=== PATIENT | female | born 1990 | race African-American/Black ===

== ENCOUNTER 2016-05-01 17:32 | Inpatient (IN) | payer MEDICAID, OTHER ==
[~2016-05-01] VITALS: Ht 157.5 cm; Wt 53.5 kg
[2016-05-01] MEDS ORDERED: HALOPERIDOL LACTATE 5 MG/ML VIAL IM ONE (17:45)
[2016-05-01] MEDS ORDERED: LORazepam 2 MG/ML VIAL IM ONE (17:45)
[2016-05-01] MEDS ORDERED: DiphenhydrAMINE HCL 50 MG/ML VIAL IM ONE (17:45)
[2016-05-01 18:53] LABS: BASOPHILS % (AUTO) 0.9 % (0.0-2.0); EOSINOPHILS % (AUTO) 0.5 % (1.0-6.0); HEMATOCRIT 38.8 % (36-46); HEMOGLOBIN 12.6 g/dL (12.0-16.0); LYMPHOCYTES # (AUTO) 1.7 K/uL (1.0-4.8); LYMPHOCYTES % (AUTO) 32.1 % (22.0-44.0); MEAN CORPUSCULAR HEMOGLOBIN 28.3 pg (26.0-34.0); MEAN CORPUSCULAR HGB CONC 32.5 G/dL (31.0-37.0); MEAN CORPUSCULAR VOLUME 87 fL (80-100); MONOCYTES # (AUTO) 0.4 K/uL (0.1-1.0); MONOCYTES % (AUTO) 7.1 % (2.0-9.0); NEUTROPHILS # (AUTO) 3.1 K/uL (1.8-7.7); NEUTROPHILS % (AUTO) 59.4 % (40.0-70.0); PLATELET COUNT (AUTO) 312 K/uL (150-450); RED BLOOD CELL COUNT(AUTO) 4.45 MIL/uL (4.00-5.20); RED CELL DISTRIBUTION WIDTH 13.8 % (11.5-14.5); WHITE BLOOD COUNT (AUTO) 5.3 K/uL (4.5-11.0)
[2016-05-01 19:02] LABS: ANION GAP 10 mmol/L (8-16); CARBON DIOXIDE 26 mmol/L (22-29); CHLORIDE 107 mmol/L (98-107); CREATININE 0.93 mg/dL (0.60-1.30); GLOMERULAR FILTR. RATE CALC > 60 mL/min (>60); SODIUM SERUM 143 mmol/L (136-145); UREA NITROGEN, BLOOD 16 mg/dL (7-18)
[2016-05-01 19:11] LABS: ALANINE AMINOTRANSFERASE 18 U/L (12-78); ALBUMIN 3.3 g/dL (3.4-5.0); ASPARTATE AMINOTRANSFERASE 11 U/L (15-37); BILIRUBIN,TOTAL 0.3 mg/dL (0.1-1.0)
[2016-05-01] MEDS ORDERED: POTASSIUM CHLORIDE 20 MEQ ER TABLET PO ONE (19:45)
[2016-05-01] MEDS ORDERED: NALOXONE HCL 1 MG/ML 2 ML SYG IVP ONE (21:30)
[2016-05-01] MEDS ORDERED: NALOXONE HCL 1 MG/ML 2 ML SYG IM ONE (23:15)
[2016-05-02] MEDS ORDERED: ZOLPIDEM TARTRATE 10 MG TABLET PO PRN (01:00)
[2016-05-02] MEDS ORDERED: LORazepam 2 MG TABLET PO PRN (01:00)
[2016-05-02] MEDS ORDERED: HALOPERIDOL 5 MG TABLET PO PRN (01:00)
[2016-05-02 02:31] VITALS: BP 101/78
[2016-05-02] MEDS ORDERED: INFLUENZA VIRUS VACCINE QVS 2016-17 (3YR+)/PF 60 MCG/0.5 ML SYRINGE IM ONE (03:00)
[2016-05-02] MEDS: RisperiDONE 2 MG TABLET PO SCH (13:40)
[2016-05-02 17:55] VITALS: BP 98/44
[2016-05-02 18:00] VITALS: BP 86/41
[2016-05-02 18:05] VITALS: BP 77/42
[2016-05-02 18:10] VITALS: BP 86/46
[2016-05-02] MEDS ORDERED: IBUPROFEN 400 MG TABLET PO PRN (23:00)
[2016-05-02] MEDS ORDERED: ACETAMINOPHEN 325 MG TABLET PO PRN (23:00)
[2016-05-03 00:05] VITALS: BP 100/67
[2016-05-03 06:51] VITALS: BP 112/63
[2016-05-03 10:05] VITALS: BP 100/65
[2016-05-03] MEDS: RisperiDONE 2 MG TABLET PO SCH (10:06)
[2016-05-03 16:08] VITALS: BP 110/65
[2016-05-03 16:57] VITALS: BP 112/67
[2016-05-04 06:02] VITALS: BP 100/60
[2016-05-04 08:39] VITALS: BP 99/58
[2016-05-04 08:52] LABS: BASOPHILS % (AUTO) 0.7 % (0.0-2.0); EOSINOPHILS % (AUTO) 0.8 % (1.0-6.0); HEMATOCRIT 36.6 % (36-46); HEMOGLOBIN 11.8 g/dL (12.0-16.0); LYMPHOCYTES # (AUTO) 1.4 K/uL (1.0-4.8); LYMPHOCYTES % (AUTO) 35.3 % (22.0-44.0); MEAN CORPUSCULAR HEMOGLOBIN 28.3 pg (26.0-34.0); MEAN CORPUSCULAR HGB CONC 32.3 G/dL (31.0-37.0); MEAN CORPUSCULAR VOLUME 87 fL (80-100); MONOCYTES # (AUTO) 0.3 K/uL (0.1-1.0); MONOCYTES % (AUTO) 7.1 % (2.0-9.0); NEUTROPHILS # (AUTO) 2.2 K/uL (1.8-7.7); NEUTROPHILS % (AUTO) 56.1 % (40.0-70.0); PLATELET COUNT (AUTO) 287 K/uL (150-450); RED BLOOD CELL COUNT(AUTO) 4.19 MIL/uL (4.00-5.20); RED CELL DISTRIBUTION WIDTH 13.4 % (11.5-14.5); WHITE BLOOD COUNT (AUTO) 3.9 K/uL (4.5-11.0)
[2016-05-04 09:11] LABS: HEMOGLOBIN A1C 5.1 % (4.5-6.2)
[2016-05-04 09:14] VITALS: BP 100/55
[2016-05-04] MEDS: RisperiDONE 2 MG TABLET PO SCH (09:15)
[2016-05-04 09:34] LABS: ALANINE AMINOTRANSFERASE 19 U/L (12-78); ALBUMIN 3.1 g/dL (3.4-5.0); ANION GAP 12 mmol/L (8-16); ASPARTATE AMINOTRANSFERASE 14 U/L (15-37); BILIRUBIN,TOTAL 0.7 mg/dL (0.1-1.0); CALCIUM, TOTAL 8.2 mg/dL (8.8-10.5); CARBON DIOXIDE 24 mmol/L (22-29); CHLORIDE 107 mmol/L (98-107); CREATININE 0.58 mg/dL (0.60-1.30); GLOMERULAR FILTR. RATE CALC > 60 mL/min (>60); POTASSIUM 4.1 mmol/L (3.5-5.1); SODIUM SERUM 143 mmol/L (136-145); THYROID STIMULATING HORMONE 0.15 uIU/mL (0.36-3.74); TOTAL PROTEIN, SERUM 6.2 g/dL (6.4-8.2); UREA NITROGEN, BLOOD 9 mg/dL (7-18)
[2016-05-04] MEDS ORDERED: DiphenhydrAMINE HCL 50 MG/ML VIAL IM ONE (14:30)
[2016-05-04] MEDS ORDERED: HALOPERIDOL LACTATE 5 MG/ML VIAL IM ONE (14:30)
[2016-05-04] MEDS ORDERED: LORazepam 2 MG/ML VIAL IM ONE (14:30)
[2016-05-04 15:23] VITALS: BP 112/67
[2016-05-04 16:05] VITALS: BP 110/66
[2016-05-05 08:03] VITALS: BP 114/71
[2016-05-05] MEDS: RisperiDONE 2 MG TABLET PO SCH (09:09)
[2016-05-05] MEDS ORDERED: RISP2 PO (12:08)
== END 2016-05-05 13:45 | disposition home or self-care (01) | DRG 750 ==
LOC: EEVIPCON 17:32 → EMS 17:34 → B3A 05-02 01:30
PROVIDERS: ADMIT Psychiatry & Neurology Child & Adolescent Psychiatry; ATTEND Psychiatry & Neurology Child & Adolescent Psychiatry
DX: F25.1 Schizoaffective disorder, depressive type (principal); E88.09 Other disorders of plasma-protein metabolism, not elsewhere classified; F29 Unspecified psychosis not due to a substance or known physiological condition; F15.10 Other stimulant abuse, uncomplicated; E87.6 Hypokalemia; F17.200 Nicotine dependence, unspecified, uncomplicated; R73.9 Hyperglycemia, unspecified; Z79.899 Other long term (current) drug therapy; Z98.890 Other specified postprocedural states; Z28.21 Immunization not carried out because of patient refusal
CPT/HCPCS: 83036; 84443; 96372; 99291; G0480; J1200; J1630; J2060; J2310